=== PATIENT | female | born 1980 | race Caucasian/White ===

== ENCOUNTER 2024-12-14 12:13 | Emergency (ER) | payer OTHER ==
[2024-12-14] MEDS: Ketorolac 30 MG/ML SDV IM ONE (14:09)
[2024-12-14] MEDS ORDERED: Sodium Chloride 0.9% 10 ML Syringe FLUSH PRN (15:40)
== END 2024-12-14 16:41 | disposition home or self-care (01) ==
LOC: JP.ED 12:13
DX: M54.42 Lumbago with sciatica, left side (principal)
CPT/HCPCS: 96372; 99283; A9270; J1171; J1885